=== PATIENT | male | born 1955 | race Caucasian/White ===

== ENCOUNTER 2016-10-20 16:42 | Emergency (ER) | payer BC ==
[~2016-10-20] VITALS: Ht 177.8 cm; Wt 77.1 kg
[2016-10-20 17:16] VITALS: BP 153/83
--- NOTE | 2016-10-20 17:22 | Emergency Room Report ---
History of Present Illness General Chief Complaint: Multiple Trauma/Fall Source: Patient Present Illness HPI 61-year-old male presents to emergency Department complaining of pain and swelling in the right wrist status post mechanical fall off a horse at 2 PM this afternoon. Patient states he did hit his head however he denies loss of consciousness, headache or tenderness/pain to the head. He states his pain is localized to the right wrist. Patient rates his pain as 6/10 in severity states he took 2 Advil this afternoon which has helped minimize his pain. Denies previous injury to the wrist. Pt is right hand dominant. Denies neck or back pain. Denies numbness tingling or loss of sensation or gross motor movements of the extremities, incontinence of bowel or bladder. Denies CP, Palpitations, LOC, AMS, dizziness, Changes in Vision, Sensation, paresthesias, or a sudden severe headache. Allergies: Coded Allergies: No Known Allergies (Unverified , 10/20/16) Patient History Past Medical History: see triage record Past Surgical History: none Pertinent Family History: none Immunizations: UTD Reviewed Nursing Documentation: PMH: Agreed, PSxH: Agreed Nursing Documentation-PMH Past Medical History: No Stated History Review of Systems All Other Systems: negative except mentioned in HPI Physical Exam Vital Signs Date Time Temp Pulse Resp B/P Pulse Ox O2 Delivery O2 Flow Rate FiO2 10/20/16 16:59 98.2 82 18 153/83 97 Room Air Sp02 EP Interpretation: reviewed, normal General Appearance: no apparent distress, alert, GCS 15, non-toxic Head: normocephalic, atraumatic Eyes: bilateral eye PERRL, bilateral eye normal inspection ENT: hearing grossly normal, normal pharynx, no angioedema, normal voice Neck: full range of motion, supple/symm/no masses Respiratory: chest non-tender, lungs clear, normal breath sounds, speaking full sentences Cardiovascular #1: regular rate, rhythm, no edema Cardiovascular #2: 2+ radial (R), 2+ radial (L) Gastrointestinal: normal bowel sounds, non tender, soft, no guarding, no rebound Rectal: deferred Genitourinary: normal inspection, no CVA tenderness Musculoskeletal: back normal, gait/station normal, normal range of motion, no calf tenderness, tender - medial and lateral TTP to the distal right wrist, FROM with pain. no snuff box ttp, elbow not involved, pt is NVI Neurologic: alert, oriented x3, responsive, motor strength/tone normal, sensory intact, cerebellar normal, normal gait, speech normal Psychiatric: judgement/insight normal, memory normal, mood/affect normal, no suicidal/homicidal ideation Skin: normal color, no rash, warm/dry, well hydrated Lymphatic: no adenopathy Procedures Splinting Splinting : Consent: Verbal Location: right wrist Splint: wrist Pre-Proc Neuro Vasc Exam: normal Post-Proc Neuro Vasc Exam: normal Patient Tolerated: Well Complications: None Medical Decision Making PA Attestation Dr. Tran is my supervising Physician whom patient management has been discussed with. Diagnostic Impression: Primary Impression: Distal radius fracture, right Qualified Codes: S52.501A - Unspecified fracture of the lower end of right radius, initial encounter for closed fracture ER Course Pt. presents to the ED c/o of wrist pain status post falling off a horse at 2 PM this afternoon. Patient reports hitting his head however he denies loss of consciousness denies tenderness to the areas of the face or head. Patient reports pain, swelling to the right wrist. Ddx considered but are not limited to Fracture, dislocation, contusion, Sprain/ Strain/Spasm, Vital signs: are WNL, pt. is afebrile H&PE are most consistent with right wrist contusion , possible fracture will r/ o with imaging. ORDERS: - X-ray right wrist 3 views - positive for distal radial non-displaced fracture, per preliminary read in ED by Dr. Tran ED INTERVENTIONS: -Volar wrist Splint applied by facilities operations technician. Pt. remains neurovascularly intact. -- right arm Sling applied by facilities operations technician. Pt. remains neurovascularly intact. DISCHARGE: At this time pt. is stable for d/c to home. Will provide printed patient care instructions, and any necessary prescriptions. Care plan and follow up instructions have been discussed with the patient prior to discharge. Last Vital Signs Date Time Temp Pulse Resp B/P Pulse Ox O2 Delivery O2 Flow Rate FiO2 10/20/16 16:59 98.2 82 18 153/83 97 Room Air Disposition: HOME, SELF-CARE Condition: Stable Scripts Hydrocodone Bit/Acetaminophen 5-325* (NORCO 5-325*) 1 Each Tablet 1 TAB ORAL Q6H Y for For Pain, #10 TAB 0 Refills Prov: Sofya Sandoval 10/20/16 Ibuprofen* (MOTRIN*) 600 Mg Tablet 600 MG ORAL THREE TIMES A DAY, #30 TAB 0 Refills Prov: Sofya Sandoval 10/20/16 Patient Instructions: Radial Fracture Additional Instructions: Take medications as directed. Follow up with PCP or electronics specialist in 3-5 days Return sooner to ED if new symptoms occur, or current symptoms become worse. Do not drink alcohol, drive, or operate heavy machinery while taking [place] as this may cause drowsiness. Sofya Sandoval Oct 20, 2016 17:22
[2016-10-20] MEDS ORDERED: IBUPROFEN600 MG ORAL (17:54)
[2016-10-20] MEDS ORDERED: NORCO 5-325 TA1 EACH ORAL (17:54)
[2016-10-20 18:11] VITALS: BP 153/83
--- NOTE | 2016-10-21 11:26 | Diagnostic Imaging Report ---
Clinical Indication:PAIN Technique: 3 views of the right wrist Comparison: None Findings: There is a transverse nondisplaced fracture of the distal radius. This extends to the articular surface. No carpal fracture demonstrated. No associated ulnar styloid fracture Impression: Positive for nondisplaced distal radial fracture Findings discussed by phone with Dr. Paniagua in the emergency room at the time of interpretation
== END 2016-10-20 18:12 | disposition home or self-care (01) ==
LOC: EMR 17:49
DX: S52.591A Other fractures of lower end of right radius, initial encounter for closed fracture (principal); V80.010A Animal-rider injured by fall from or being thrown from horse in noncollision accident, initial encounter; Y93.52 Activity, horseback riding; Y92.89 Other specified places as the place of occurrence of the external cause
CPT/HCPCS: 99284